=== PATIENT | female | born 1980 | race African-American/Black ===

== ENCOUNTER 2017-09-17 23:18 | Emergency (ER) | payer BC ==
[2017-09-17 23:22] VITALS: BP 125/82; PULSE 80; TEMP 98.5; BMI 22.3
--- NOTE | 2017-09-17 23:28 | PDOC ---
History of Present Illness - General Chief Complaint: Overdose Stated Complaint: I TOOK TO MANY ANTIBIOTICS History Source: Patient Exam Limitations: No Limitations - History of Present Illness Initial Comments: 09/17/17 23:32 This is a 36-year-old female who comes in for evaluation post accidentally overdosing on her antibiotic clindamycin. Patient was taking 2 tablets every 2 hours instead of 1 tablet 3 times a day. Patient took a total of 8 tablets over the course of today. Patient was concerned that she overdose. Patient otherwise denied any complaints or was no abdominal pain, nausea, dizziness or any adverse effects. PAST MEDICAL HISTORY: no significant history PAST SURGICAL HISTORY: no significant history FAMILY HISTORY: no pertinant history SOCIAL HISTORY: Pt lives with family and is employed. MEDICATIONS: reviewed ALLERGIES: As per nursing notes Review of Systems General: No fevers or chills, no weakness, no weight loss HEENT: No change in vision. No sore throat,. No ear pain CardioVascular: No chest pain or shortness of breath Respiratory:No cough, or wheezing. Gastrointestinal: no nausea, vomitting, diarrhea or constipation, No rectal bleeding Genitourinary: No dysuria, hematuria, or frequency Musculoskeletal: No joint or muscle pain or swelling Neurologic: No headache, vertigo, dizziness or loss of consciousness Psychiatric: nor depression Skin: No rashes or easy bruising Endocrine: no increased thirst or abnormal weight change Allergic: no skin or latex allergy All other systems reviewed and normal GENERAL: The patient is awake, alert, and fully oriented, in no acute distress. HEAD: Normal with no signs of trauma. EYES: Pupils equal, round and reactive to light, extraocular movements intact, sclera anicteric, conjunctiva clear. EXTREMITIES: Normal range of motion, no edema. NEUROLOGICAL: Normal speech, normal gait. grossly intact PSYCH: Normal mood, normal affect. SKIN: Warm, Dry, normal turgor, no rashes or lesions noted. Assessment and plan: This is a 36-year-old female with an accidental over ingestion of her antibiotic clindamycin. Poison control was contacted and discussed with poison control. As patient had no adverse effects and there was really no documented adverse effects other than some diarrhea patient was reassured that there was no need to be concerned at this point to eat some yogurt or get a probiotic and take it until she finishes her clindamycin. Patient because of the accidental overdose did not have enough clindamycin to finish her 7 day treatment course so additional tablets were sent to her pharmacy to make sure she has enough to finish her treatment. Patient discharged home Past History - Past Medical History Allergies/Adverse Reactions: Allergies Allergy/AdvReac Type Severity Reaction Status Date / Time No Known Allergies Allergy Verified 09/17/17 23:19 Home Medications: Ambulatory Orders Clindamycin [Cleocin -] 300 mg PO TID #10 capsule 09/17/17 COPD: No - Suicide/Smoking/Psychosocial Hx Smoking History: Never smoked Hx Alcohol Use: No Drug/Substance Use Hx: No Substance Use Type: None *Physical Exam - Vital Signs Last Vital Signs Temp Pulse Resp BP Pulse Ox 98.5 F 80 18 125/82 100 09/17/17 23:19 09/17/17 23:19 09/17/17 23:19 09/17/17 23:19 09/17/17 23:19 *DC/Admit/Observation/Transfer Diagnosis at time of Disposition: Accidental overdose Qualifiers: Encounter type: initial encounter Qualified Code(s): T50.901A - Poisoning by unspecified drugs, medicaments and biological substances, accidental ( unintentional), initial encounter - Discharge Dispostion Disposition: HOME Condition at time of disposition: Stable Admit: No - Prescriptions Prescriptions: Clindamycin [Cleocin -] 300 mg PO TID #10 capsule - Referrals - Patient Instructions Additional Instructions: Make sure you take the rest of the antibiotics one tablet every 8 hours. 1 small container of yogurt a day for the rest of the time your on the antibiotics. Return to the emergency department immediately with ANY new, persistent or worsening symptoms. Continue any medications as previously prescribed by your physician. You should follow up with your primary doctor as soon as possible regarding today's emergency department visit. . Please make sure your doctor reviews the results of your emergency evaluation. Thank you for coming to the Emergency Department today for your care. It was a pleasure to see you today. Please note that your evaluation is INCOMPLETE until you follow-up with your doctor. - Post Discharge Activity
== END 2017-09-17 23:31 | disposition home or self-care (01) ==
LOC: FER 23:18
DX: T36.8X1A Poisoning by other systemic antibiotics, accidental (unintentional), initial encounter (principal); X58.XXXA Exposure to other specified factors, initial encounter; Y93.89 Activity, other specified; Y92.9 Unspecified place or not applicable
CPT/HCPCS: 99281-25